=== PATIENT | female | born 1940 | race African-American/Black ===

== ENCOUNTER 2016-06-05 09:27 | Emergency (ER) | payer MEDICARE, BC ==
[~2016-06-05] VITALS: Ht 154.9 cm; Wt 63.0 kg
[~2016-06-05 09:27] MED LIST: ASPIR 8181 MG ORAL; BEE POLLEN PO; BLUEBERRY FLAVOR1 ML MC; CINNAMON500 MG PO; DOXEPIN HCL10 MG ORAL; FISH OIL500 MG PO; LOSARTAN POTASS50 MG ORAL; METFORMIN HCL500 M1 ORAL; PRAVASTATIN SOD20 M1 ORAL; PROBIOTIC 4X C1 EACH PO; SPIRULINA500 MG PO; VITAMIN C500 M1 ORAL
[2016-06-05 09:40] VITALS: BP 143/73
[2016-06-05 10:33] LABS: APPEARANCE,URINE CLEAR; KETONES,URINE NEGATIVE (NEGATIVE); LEUKOCYTE ESTERASE ,URINE 3+ (NEGATIVE); NITRITE,URINE NEGATIVE (NEGATIVE); PH,URINE 6.5 (4.5-8.0); PROTEIN,URINE NEGATIVE (NEGATIVE); UROBILINOGEN,URINE NORMAL MG/DL (0.0-1.0)
[2016-06-05 10:39] LABS: BASOPHILS % (AUTO) 1.2 % (0.0-2.0); LYMPHOCYTES % (AUTO) 22.7 % (20.0-45.0); MEAN CORPUSCULAR HEMOGLOBIN 28.8 PG (27.0-31.0); MEAN CORPUSCULAR HGB CONC 32.3 G/DL (32.0-36.0); MEAN CORPUSCULAR VOLUME 89 FL (80-99); MEAN PLATELET VOLUME 8.5 FL (6.5-10.1); MONOCYTES % (AUTO) 9.9 % (1.0-10.0); NEUTROPHILS % (AUTO) 64.3 % (45.0-75.0); PLATELET COUNT 189 K/UL (150-450); RED BLOOD COUNT 5.28 M/UL (4.20-5.40); RED CELL DISTRIBUTION WIDTH 12.5 % (11.6-14.8); WHITE BLOOD COUNT 6.3 K/UL (4.8-10.8)
[2016-06-05 10:49] LABS: BACTERIA,URINE FEW /HPF; SQUAMOUS EPITHELIAL CELL,UR FEW /LPF (NONE/OCC)
[2016-06-05 10:59] LABS: ALANINE AMINOTRANSFERASE 8 U/L (3-33); ALBUMIN/GLOBULIN RATIO 1.3 (1.0-2.7); ANION GAP 12 (5-15); ASPARTATE AMINO TRANSFERASE 14 U/L (5-40); CALCIUM 9.7 mg/dL (8.6-10.2); CARBON DIOXIDE 30 mEQ/L (20-30); CHLORIDE 98 mEQ/L (98-107); CREATININE 0.8 mg/dL (0.5-0.9); HEMOLYSIS 3; POTASSIUM 4.8 mEQ/L (3.4-4.9); SODIUM 140 mEQ/L (135-145)
[2016-06-05 12:00] VITALS: BP 124/67
--- NOTE | 2016-06-05 14:08 | Emergency Room Report ---
History of Present Illness General Chief Complaint: General Complaint Source: Patient Present Illness HPI 75-year-old female presents to ED for evaluation. Patient states the last several days she's felt very weak with poor appetite. Denies any fevers or chills. Notes bodyaches. However her patient has history of fibromyalgia. Pain is aching, 5/10, diffuse, nonradiating. Next dysuria or hematuria. Denies cough. Denies chest pain or shortness of breath. Her was recently admitted to [facility] for pneumonia. Her PMD referred her here to rule out pneumonia. No other aggravating or relieving factors. Denies any other associated symptom Allergies: Coded Allergies: ACETAMINOPHEN (Verified Allergy, Severe, 03/12/14) restless leg DIPHENHYDRAMINE (Verified Allergy, Severe, 03/12/14) restless leg RAQUEL INHIBITORS (Verified Allergy, Unknown, 03/11/14) BENAZEPRIL (Verified Allergy, Unknown, 03/12/14) SWOLEN LIPS ATORVASTATIN (Verified Adverse Reaction, Severe, 03/12/14) COUGH Uncoded Allergies: DPT VACCINE (Allergy, Severe, 03/12/14) PT FEELS DEATHLY SICK FLU SHOT (Allergy, Severe, 03/12/14) PT FEELS DEATHLY SICK ator (Allergy, Unknown, 03/11/14) Patient History Past Medical History: DM, HTN Past Surgical History: none Pertinent Family History: none Social History: Denies: alcohol use, drug use, smoking Last Menstrual Period: n/a Now: No Immunizations: UTD Reviewed Nursing Documentation: PMH: Agreed, PSxH: Agreed Nursing Documentation-PMH Past Medical History: No History, Except For Hx Hypertension: Yes Hx Diabetes: Yes Hx Cancer: No Hx Gastrointestinal Problems: No Hx Neurological Problems: No Review of Systems All Other Systems: negative except mentioned in HPI Physical Exam Vital Signs Date Time Temp Pulse Resp B/P Pulse Ox O2 Delivery O2 Flow Rate FiO2 06/05/16 09:35 97.5 64 16 129/86 98 Room Air Sp02 EP Interpretation: reviewed, normal General Appearance: no apparent distress, alert, GCS 15, non-toxic Head: normocephalic, atraumatic Eyes: bilateral eye PERRL, bilateral eye normal inspection ENT: hearing grossly normal, normal pharynx, no angioedema, normal voice Neck: full range of motion, supple/symm/no masses Respiratory: chest non-tender, lungs clear, normal breath sounds, speaking full sentences Cardiovascular #1: regular rate, rhythm, no edema Cardiovascular #2: 2+ carotid (R), 2+ carotid (L), 2+ radial (R), 2+ radial (L) , 2+ dorsalis pedis (R), 2+ dorsalis pedis (L) Gastrointestinal: normal bowel sounds, non tender, soft, non-distended, no guarding, no rebound Rectal: deferred Genitourinary: normal inspection, no CVA tenderness Musculoskeletal: back normal, gait/station normal, normal range of motion, non- tender Neurologic: alert, oriented x3, responsive, motor strength/tone normal, sensory intact, speech normal Psychiatric: judgement/insight normal, memory normal, mood/affect normal, no suicidal/homicidal ideation Reflexes: 3+ bicep (R), 3+ bicep (L), 3+ tricep (R), 3+ tricep (L), 3+ knee (R) , 3+ knee (L) Skin: normal color, no rash, warm/dry, well hydrated Lymphatic: no adenopathy Medical Decision Making Diagnostic Impression: Primary Impression: Viral syndrome ER Course Hospital Course 75-year-old female presents ED complaining of bodyaches, weakness. admitted for pneumonia Differential diagnoses include: URI, bronchitis, asthma/COPD, pneumonia Clinical course Patient placed on stretcher. After initial history, physical exam reveals an elderly female in no acute distress. Bilateral TM unremarkable. No pharyngeal erythema. No tonsillar exudates. No lymphadenopathy. lungs clear. I ordered labs, IV fluids, chest x-ray. Labs reviewed-no leukocytosis noted, hemoglobin/hematocrit stable, electrolytes okay, UA ok EKG - NSR, no acute changes Chest x-ray no infiltrate Reassurance given to patient. Likely viral syndrome. Encouraged to rest Diagnosis - viral syndrome Stable and discharged home with prescriptions for viral syndrome. Instructed to followup with PMD. Return to ED if symptoms recur or worsen Labs Test 06/05/16 10:18 White Blood Count 6.3 K/UL (4.8-10.8) Red Blood Count 5.28 M/UL (4.20-5.40) Hemoglobin 15.2 G/DL (12.0-16.0) Hematocrit 47.1 % (37.0-47.0) Mean Corpuscular Volume 89 FL (80-99) Mean Corpuscular Hemoglobin 28.8 PG (27.0-31.0) Mean Corpuscular Hemoglobin Concent 32.3 G/DL (32.0-36.0) Red Cell Distribution Width 12.5 % (11.6-14.8) Platelet Count 189 K/UL (150-450) Mean Platelet Volume 8.5 FL (6.5-10.1) Neutrophils (%) (Auto) 64.3 % (45.0-75.0) Lymphocytes (%) (Auto) 22.7 % (20.0-45.0) Monocytes (%) (Auto) 9.9 % (1.0-10.0) Eosinophils (%) (Auto) 2.0 % (0.0-3.0) Basophils (%) (Auto) 1.2 % (0.0-2.0) Urine Color Pale yellow Urine Appearance Clear Urine pH 6.5 (4.5-8.0) Urine Specific [place] 1.010 (1.005-1.035) Urine Protein Negative (NEGATIVE) Urine Glucose (UA) Negative (NEGATIVE) Urine Ketones Negative (NEGATIVE) Urine Occult Blood 2+ (NEGATIVE) Urine Nitrite Negative (NEGATIVE) Urine Bilirubin Negative (NEGATIVE) Urine Urobilinogen Normal MG/DL (0.0-1.0) Urine Leukocyte Esterase 3+ (NEGATIVE) Urine RBC 2-4 /HPF (0 - 2) Urine WBC 5-10 /HPF (0 - 2) Urine Squamous Epithelial Cells Few /LPF (NONE/OCC) Urine Bacteria Few /HPF (NONE) Sodium Level 140 mEQ/L (135-145) Potassium Level 4.8 mEQ/L (3.4-4.9) Chloride Level 98 mEQ/L (98-107) Carbon Dioxide Level 30 mEQ/L (20-30) Anion Gap 12 (5-15) Blood Urea Nitrogen 16 mg/dL (7-23) Creatinine 0.8 mg/dL (0.5-0.9) Estimat Glomerular Filtration Rate mL/min (>60) Glucose Level 144 mg/dL (74-106) Calcium Level 9.7 mg/dL (8.6-10.2) Total Bilirubin 0.3 mg/dL (0.0-1.2) Aspartate Amino Transf (AST/SGOT) 14 U/L (5-40) Alanine Aminotransferase (ALT/SGPT) 8 U/L (3-33) Alkaline Phosphatase 80 U/L (35-104) Total Protein 7.0 g/dL (6.6-8.7) Albumin 4.0 g/dL (3.5-5.2) Globulin 3.0 g/dL Albumin/Globulin Ratio 1.3 (1.0-2.7) EKG Diagnostic Results Rate: normal Rhythm: NSR ST Segments: no acute changes ASA given to the pt in ED: No Rhythm Strip Diag. Results EP Interpretation: yes Rhythm: NSR, no PVC's, no ectopy Chest X-Ray Diagnostic Results EP Interpretation: No Findings: no consolidation, no effusion, no pneumothorax, no acute cardiopulmonary disease Number of Views: 1 Last Vital Signs Date Time Temp Pulse Resp B/P Pulse Ox O2 Delivery O2 Flow Rate FiO2 06/05/16 09:40 98.0 61 15 143/73 100 Room Air Status: improved Disposition: HOME, SELF-CARE Condition: Stable Patient Instructions: Upper Respiratory Infection, Adult, [id number] CHANDLER ABDULLAHI M.D. Jun 05, 2016 14:08
--- NOTE | 2016-06-06 08:45 | Diagnostic Imaging Report ---
Indication: Cough Technique: XRAY CHEST 1 V Comparison: 02/23/16 Findings: The cardiomediastinal silhouette is within normal limits. There is no focal consolidation, pneumothorax or pleural effusion. Degenerative changes of the spine are noted. Impression: No acute cardiopulmonary disease.
--- NOTE | 2016-06-08 16:03 | Cardiology Report ---
APPROVED REPORT EKG Measurement Heart [id number] Normal sinus rhythm Left axis deviation Abnormal ECG
== END 2016-06-05 12:00 | disposition home or self-care (01) ==
LOC: EMR 09:50
DX: B34.9 Viral infection, unspecified (principal); M79.7 Fibromyalgia; Z88.6 Allergy status to analgesic agent; Z88.8 Allergy status to other drugs, medicaments and biological substances; Z88.7 Allergy status to serum and vaccine; E11.9 Type 2 diabetes mellitus without complications; I10 Essential (primary) hypertension
CPT/HCPCS: 36415; 71010; 80053; 81003; 85025; 93005; 96374

== ENCOUNTER 2017-02-24 10:14 | Emergency (ER) | payer MEDICARE, BC ==
[~2017-02-24] VITALS: Ht 157.5 cm; Wt 65.8 kg
[2017-02-24] MEDS ORDERED: ADULT WAL-100 MG/5 M ORAL (12:25)
[2017-02-24] MEDS ORDERED: CLARITIN10 M2 ORAL (12:25)
[2017-02-24 12:44] VITALS: BP 105/69
[2017-02-24 12:45] VITALS: BP 105/69
--- NOTE | 2017-03-02 20:07 | Emergency Room Report ---
History of Present Illness General Chief Complaint: Flu Like Symptoms Present Illness HPI Patient is a 76-year-old female presented after increased cough and congestion. Patient gradual onset of symptoms. Patient had the who is sick with similar symptoms. She had reportedly received a flu vaccine. Patient nonproductive cough which was worsened with supine position. She denied any fever. She had not been vomiting. She denied feeling dizzy or lightheaded. Allergies: Coded Allergies: ACETAMINOPHEN (Verified Allergy, Severe, 03/12/14) restless leg DIPHENHYDRAMINE (Verified Allergy, Severe, 03/12/14) restless leg RAQUEL INHIBITORS (Verified Allergy, Unknown, 03/11/14) BENAZEPRIL (Verified Allergy, Unknown, 03/12/14) SWOLEN LIPS ATORVASTATIN (Verified Adverse Reaction, Severe, 03/12/14) COUGH Uncoded Allergies: DPT VACCINE (Allergy, Severe, 03/12/14) PT FEELS DEATHLY SICK FLU SHOT (Allergy, Severe, 03/12/14) PT FEELS DEATHLY SICK ator (Allergy, Unknown, 03/11/14) Patient History Past Medical History: see triage record Reviewed Nursing Documentation: PMH: Agreed, PSxH: Agreed Nursing Documentation-PMH Hx Hypertension: Yes Hx Diabetes: Yes Hx Cancer: No Hx Gastrointestinal Problems: No Hx Neurological Problems: No Review of Systems All Other Systems: negative except mentioned in HPI Physical Exam Vital Signs Date Time Temp Pulse Resp B/P (MAP) Pulse Ox O2 Delivery O2 Flow Rate FiO2 02/24/17 10:24 98.2 91 20 126/72 97 Room Air General Appearance: well appearing, no apparent distress, alert, GCS 15, non- toxic Head: normocephalic, atraumatic ENT: hearing grossly normal, normal voice Neck: full range of motion, supple Respiratory: no respiratory distress, speaking full sentences Cardiovascular #1: normal inspection, regular rate, rhythm, no edema Gastrointestinal: normal inspection Musculoskeletal: normal inspection, normal range of motion, no calf tenderness Neurologic: normal inspection, alert, oriented x3, responsive, normal gait Psychiatric: normal inspection, mood/affect normal Skin: no rash Medical Decision Making Diagnostic Impression: Primary Impression: Viral syndrome ER Course Presented for cough. Differential diagnosis included but was not limited to bronchitis, pneumonia, pulmonary embolism, pericarditis, asthma, foreign body. Patient's benign exam and does not appear to require any further imaging or laboratory testing at this time. The patient presented viral upper respiratory infection. The patient is no respiratory distress and appears to be stable for discharge. The patient is advised to follow up with primary care doctor in 1- 2 days. Patient is advised to return if any worsening condition or if any changes in status that are concerning. This report is dictated with Any.DO vessel specialist software which may occasionally lead to discrepancies related to use of this software. Last Vital Signs Date Time Temp Pulse Resp B/P (MAP) Pulse Ox O2 Delivery O2 Flow Rate FiO2 02/24/17 12:45 98.1 64 16 105/69 98 Room Air Status: improved Disposition: HOME, SELF-CARE Condition: Stable Scripts Guaifenesin* (ADULT WAL-TUSSIN*) 100 Mg/5 Ml Liquid 5 ML ORAL Q4H, #120 ML Prov: Samy Murray 02/24/17 Loratadine (CLARITIN) 10 Mg Capsule 10 MG ORAL DAILY, #60 CAP Prov: Samy Murray 02/24/17 Referrals: ADIA NEGRON (PCP) Patient Instructions: Viral Respiratory Infection Samy Murray Mar 02, 2017 20:07
== END 2017-02-24 12:43 | disposition home or self-care (01) ==
LOC: EMR 12:15
DX: B34.9 Viral infection, unspecified (principal); E11.9 Type 2 diabetes mellitus without complications; I10 Essential (primary) hypertension; Z88.6 Allergy status to analgesic agent; Z88.8 Allergy status to other drugs, medicaments and biological substances; Z88.7 Allergy status to serum and vaccine
CPT/HCPCS: 82962; 99284

== ENCOUNTER → 2018-05-18 | Outpatient (CLI) | payer MEDICARE, BC ==
[~2018-05-18] MED LIST changes: +ADULT WAL-100 MG/5 M ORAL; +CLARITIN10 M2 ORAL
--- NOTE | 2018-05-18 15:46 | Diagnostic Imaging Report ---
Indication: Cough Technique: 2 views of the chest Comparison: None Findings: Lungs and pleural spaces are clear. The heart size is normal. The bones demonstrate mild degenerative spondylosis changes. No significant interim change. Impression: Negative
== END | disposition home or self-care (01) ==
LOC: RAD 13:00
DX: R05 Cough (principal); M47.9 Spondylosis, unspecified
CPT/HCPCS: 71046